=== PATIENT | female | born 1960 | race Caucasian/White ===

== ENCOUNTER → 2016-07-01 | Outpatient (CLI) | payer OTHER ==
--- NOTE | 2016-07-02 08:04 | WWHP ---
DATE OF SERVICE: 07/01/2016 CHIEF COMPLAINT: The patient is here for her routine gynecologic exam and mammogram. HPI: This is a 56-year-old, G2, P2 with an LMP of 05/2015. The patient is without gynecologic complaints. She denies any vaginal bleeding for more than one year. Past medical history is unremarkable. MEDICATIONS: None. ALLERGIES: No known drug allergies. Past surgical and family histories are unchanged from the 2014 H&P. 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 She has no history of STDs. SOCIAL HISTORY: She says she has been smoking about 1 pack of cigarettes per day, has about 3 alcoholic drinks per week and denies drug use. 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 REVIEW OF SYSTEMS: Weight has been stable. She denies respiratory, cardiac, or GI problems. PHYSICAL EXAM: Blood pressure 112/74. Height 5 feet 6 inches. Weight 160 pounds. Temperature 97.7, pulse 84. This a well-developed, well-nourished white female who is alert and oriented x3 in no acute distress. HEENT is within normal limits. NECK: Supple without mass or thyromegaly. CHEST AND LUNGS: There are scattered rhonchi throughout the lung hong bilaterally that seem to improve somewhat with cough. There is also slightly prolonged expiration bilaterally noted. HEART: Regular rate and rhythm. Breasts are without mass or discharge. Axillary exam is negative for adenopathy. BACK: Negative for CVA tenderness. ABDOMEN: Soft, nontender, without palpable masses. PELVIC EXAM: Normal external genitalia. Cervix and vagina appear normal. There is minimal atrophy noted. There is no evidence of prolapse. The uterus is midposition, nongravid size and nontender. There are no palpable adnexal masses or tenderness. Rectovaginal exam is negative for mass or tenderness and is negative for occult blood. EXTREMITIES: Nontender. IMPRESSION: 1. A 56-year-old female in early menopause with one year of amenorrhea. 2. Normal gynecologic exam. 3. Smoker with slightly prolonged expiration. Possible early chronic obstructive pulmonary disease. PLAN: 1. Pap smear was performed. 2. Self breast examination was discussed. 3. Mammogram will be done today. 4. I have discussed her lung findings and I have stressed the importance of trying to quit smoking. I have also recommended that she establish with a primary care physician who can see her for her lung findings and possible COPD. 5. I have recommended screening colonoscopy based on her age. Dr. Reyes's card was given to the patient for this. 6. Osteoporosis prevention was discussed. I have recommended that she increase her calcium intake to about 120% of the daily value. We have also discussed the importance of vitamin D and regular exercise as well as quitting smoking. 7. She will return in one year.
--- NOTE | 2016-07-02 08:08 | MM ---
Reason for exam: screening (asymptomatic). Last mammogram was performed 1 year and 2 months ago. History: Family history of breast cancer in paternal grandmother at age 56. Took hormonal contraceptives for 3 years. Physical Findings: A clinical breast exam by your physician is recommended on an annual basis and results should be correlated with mammographic findings. MG Screening Mammo w CAD Bilateral CC and MLO view(s) were taken. Prior study comparison: May 01, 2015, bilateral MG screening mammo w CAD. February 07, 2014, bilateral MG screening mammo w CAD. The breast tissue is heterogeneously dense. This may lower the sensitivity of mammography. Finding: Architectural distortion in the left breast. No significant changes in finding since May 01, 2015 and February 07, 2014. ASSESSMENT: Incomplete: need additional imaging evaluation, BI-RAD 0 RECOMMENDATION: Special view mammogram of the left breast. (3D) If lesion persists on supplemental views, image directed ultrasound is recommended. [facility] will attempt to contact patient to return for supplemental views and ultrasound if indicated.
== END | disposition home or self-care (01) ==
LOC: WWCWWP 15:14
PROVIDERS: ATTEND Obstetrics & Gynecology
DX: Z12.31 Encounter for screening mammogram for malignant neoplasm of breast (principal); R92.8 Other abnormal and inconclusive findings on diagnostic imaging of breast

== ENCOUNTER → 2016-07-08 | Outpatient (CLI) | payer OTHER ==
--- NOTE | 2016-07-09 07:39 | MM ---
Reason for exam: additional evaluation requested from abnormal screening. Last mammogram was performed less than 1 month ago. History: Patient is postmenopausal. Family history of breast cancer in paternal grandmother at age 56. Took hormonal contraceptives for 3 years. Physical Findings: Nurse did not find any significant physical abnormalities on exam. MG 3D Work Up W/Cad LT CC and MLO view(s) were taken of the left breast. Prior study comparison: July 01, 2016, bilateral MG screening mammo w CAD. May 01, 2015, bilateral MG screening mammo w CAD. Asymmetric breast tissue in the left breast is stable. No distinct lesion persists. These results were verbally communicated with the patient and result sheet given to the patient on 07/08/16. ASSESSMENT: Negative, BI-RAD 1 RECOMMENDATION: Return to routine screening mammogram schedule for both breasts.
== END | disposition home or self-care (01) ==
LOC: RADMAMWWP 15:07
PROVIDERS: ATTEND Obstetrics & Gynecology
DX: R92.8 Other abnormal and inconclusive findings on diagnostic imaging of breast (principal)
CPT/HCPCS: G0206; G0279

== ENCOUNTER → 2016-11-10 | Outpatient (CLI) | payer OTHER ==
--- NOTE | 2016-11-10 15:59 | MR ---
EXAMINATION TYPE: MR knee RT wo con DATE OF EXAM: 11/10/2016 COMPARISON: NONE HISTORY: Synovial cyst popliteal space TECHNIQUE: Multiplanar, multisequence imaging of the right knee is performed without IV contrast. FINDINGS: MEDIAL MENISCUS: There is some faint oblique signal within the posterior horn medial meniscus. No com munication with the articular surface is evident. Type I internal derangement of the knee present. Sm all medial radial tear of the posterior horn medial meniscus is not excluded. Series 301 image 11. LATERAL MENISCUS: Anterior and posterior horns are intact without tear. CRUCIATE LIGAMENTS: The anterior and posterior cruciate ligaments are intact. There is fluid surround ing the anterior cruciate ligament. Correlate for strain. COLLATERAL LIGAMENTS: There is some mild fluid adjacent to the medial collateral ligament. Mild strai n considered. Lateral collateral ligament appears intact. EXTENSOR MECHANISM: Distal quadriceps tendon visualized is normal. The distal patellar tendon posteri charan may has some mild increased signal. Correlate for strain and pain location. No avulsion is ident ified. EFFUSION: Very minimal joint effusion may be present. POPLITEAL CYST: 6.2 x 2.1 cm popliteal cyst. TRICOMPARTMENT SPACES: No severe loss of joint space is evident. CARTILAGE: Intact. Mild diffuse thickening may be present. BONE MARROW SIGNAL: No focal abnormal marrow signal is appreciated. OTHER: No additional significant abnormality is appreciated. IMPRESSION: 1. Popliteal cyst. 2. Correlate for strain of the anterior cruciate ligament. Partial or complete tear is not identified . 3. Mild strain of the medial collateral ligament be considered. 4. Internal derangement posterior horn medial meniscus. Tiny radial tear not excluded at the anterior portion posterior horn medial meniscus. 5. Correlate for strain at the distal patellar tendon.
== END ==
LOC: RADMRIMAIN 13:21
PROVIDERS: ATTEND Orthopaedic Surgery
DX: M71.21 Synovial cyst of popliteal space [Baker], right knee (principal); M23.321 Other meniscus derangements, posterior horn of medial meniscus, right knee

== ENCOUNTER → 2023-08-25 | Outpatient (CLI) | payer BC ==
[2023-08-25 09:22] VITALS: BP 125/72; PULSE 60; RESP 16; TEMP 97.8
--- NOTE | 2023-08-25 09:35 | P.HPOB ---
History of Present Illness H&P Date: 08/25/23 Chief Complaint: The patient is here for her routine gynecologic exam and ma mmogram. This is a 63-year-old with an LMP of 2014. The patient is here to reestablish with this office. She has not been here since 2017. She is without gynecologic complaints and denies any postmenopausal bleeding. Review of Systems She has lost about 9 pounds since she was last here in 2017. She denies respiratory, cardiac, or GI problems. 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 Previous conization of the cervix in 1989 for cervical dysplasia. History of Any Multi-Drug Resistant Organisms: None Reported Past Surgical History: Tonsillectomy, Tubal Ligation Additional Past Surgical History / Comment(s): Conization of cervix 1989. Tubes placed in the ears as a child. 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 - Past Family History Father Family Medical History: Cancer Additional Family Medical History / Comment(s): Colon Cancer, heart disease and lung cancer. Paternal grandmother had breast cancer. Mother Family Medical History: Cancer Additional Family Medical History / Comment(s): Lung cancer. Medications and Allergies Home Medications Medication Instructions Recorded Confirmed Type Ibuprofen [Motrin] 600 mg PO Q6HR PRN #20 tab 11/25/15 08/25/23 Rx Allergies Allergy/AdvReac Type Severity Reaction Status Date / Time No Known Allergies Allergy Verified 08/25/23 08:42 Exam Vital Signs Temp Pulse Resp BP Pulse Ox 08/25/23 08:43 97.8 F 60 16 125/72 98 Intake and Output 08/24/23 08/25/23 08/25/23 22:59 06:59 14:59 Other: Weight 68.492 kg Height 5 feet 6 inches, weight 151 pounds, BMI 24.4. This is a well-developed well-nourished white female who is alert and oriented times 3 in no acute distress. HEENT: Within normal limits. NECK: Supple without mass or thyromegaly. CHEST AND LUNGS: Clear to auscultation, but there is a slightly prolonged expiration phase. HEART: Regular rate and rhythm. BREASTS: Are without mass or discharge. AXILLARY EXAM: Negative for adenopathy. BACK: Negative for CVA tenderness. ABDOMEN: Soft, nontender, without palpable masses. PELVIC EXAM: Normal external genitalia with mild atrophy. Cervix and vagina appear normal with mild atrophy. There is no unusual discharge. There is no evidence of prolapse. The uterus is midposition, nongravid size and nontender. There are no palpable adnexal masses or tenderness. RECTAL EXAM: Rectovaginal exam is negative for mass or tenderness and is negative for occult blood. EXTREMITIES: Nontender. IMPRESSION: 1. 63-year-old menopausal female with normal gynecologic exam. 2. Smoker. PLAN: 1. Pap smear cotest was performed. 2. Self breast awareness was discussed with the patient. We have also discussed symptoms associated with inflammatory breast cancer. 3. Screening mammogram will be done today. 4. Osteoporosis prevention was discussed. I have stressed the importance of adequate calcium, vitamin D and regular exercise. Recommended amounts of calcium and vitamin D were also discussed. I have recommended a baseline bone density test and the order slip was given to the patient for this. 5. I strongly recommended she try to quit smoking or at least cut back s ignificantly on smoking. We have discussed many reasons why this is important, especially with her parents history of lung cancer. 6. I have recommended that she establish with a PCP and she plans on doing this in the near future. I also recommended a screening colonoscopy. She can arrange this through her PCP, once she is established. I have also given her the name of Dr. Reyes, the cloth tearer. 7. She was advised to return in one year for her annual well woman exam.
--- NOTE | 2023-08-27 22:05 | MM ---
Reason for Exam: Screening (asymptomatic). Last mammogram was performed 7 year(s) and 2 month(s) ago. Patient History: Menarche at age 14. First Full-Term at age 21. Postmenopausal. Patient used Hormonal Contraceptives for 3 years. Paternal grandmother had breast cancer, age 56. Risk Values: Luz 5 year model risk: 1.4%. NCI Lifetime model risk: 6.2%. Prior Study Comparison: 05/01/2015 Bilateral Screening Mammogram, [facility]. 07/01/2016 Bilateral Screening Mammogram, [facility]. 07/08/2016 Left Diagnostic Mammogram, [facility]. Tissue Density: The breasts are heterogeneously dense, which may obscure small masses. Findings: Analyzed By CAD. The pattern is symmetrical. Pattern is stable No suspicious groups of microcalcifications, spiculated or lobular masses, architectural distortion or other secondary signs of malignancy are mammographically apparent. Overall Assessment: Benign, BI-RAD 2 Management: Screening Mammogram of both breasts in 1 year. A negative mammogram report should not preclude additional follow up of suspicious palpable abnormalities. Patient should continue monthly self breast exam. A clinical breast exam by your physician is recommended on an annual basis and results should be correlated with mammographic findings. Electronically signed and approved by: David Gutierrez D.O. Radiologis
== END ==
LOC: WWCWWP 08:27
PROVIDERS: ATTEND Obstetrics & Gynecology
DX: Z12.31 Encounter for screening mammogram for malignant neoplasm of breast (principal); F12.90 Cannabis use, unspecified, uncomplicated; F17.210 Nicotine dependence, cigarettes, uncomplicated; Z78.0 Asymptomatic menopausal state
CPT/HCPCS: 77063; 77067